=== PATIENT | male | born 1970 | race Caucasian/White ===

== ENCOUNTER → 2016-06-08 | Outpatient (CLI) | payer OTHER ==
--- NOTE | 2016-06-08 10:36 | REP ---
Chest x-ray: Two views. History: Dyspnea, family history of ischemic heart disease. Comparison chest x-ray January 18, 2012. Findings: The lungs are symmetrically aerated and clear. Pleural angles are sharp. Heart size is normal. Pulmonary vasculature is not increased. There is old deformity of the left upper lateral rib cage involving the left 4th rib unchanged from the prior study. There are mild degenerative changes in the thoracic spine. Impression: No active disease. Signed by Morgan Veliz MD 06/08/2016 10:45 A
--- NOTE | 2016-06-08 11:56 | ECGEPIP ---
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
== END ==
LOC: M EKG 09:51
PROVIDERS: ATTEND Nurse Practitioner Adult Health
DX: R06.00 Dyspnea, unspecified (principal); Z82.49 Family history of ischemic heart disease and other diseases of the circulatory system; Z01.818 Encounter for other preprocedural examination

== ENCOUNTER → 2017-11-09 | Outpatient (CLI) | payer OTHER ==
[2017-11-09 13:31] LABS: HEMATOCRIT 46.2 % (42.0-52.0); HEMOGLOBIN 16.1 g/dl (13.5-17.5); MEAN CORPUSCULAR HEMOGLOBIN 28.4 pg (27.0-33.0); MEAN CORPUSCULAR HGB CONC 34.8 g/dl (32.0-36.5); MEAN CORPUSCULAR VOLUME 81.5 fl (80.0-96.0); PLATELET COUNT, AUTOMATED 244 10^3/uL (150-450); RED BLOOD COUNT 5.67 10^6/uL (4.30-6.10); RED CELL DISTRIBUTION WIDTH 12.1 % (11.5-14.5); WHITE BLOOD COUNT 5.7 10^3/uL (4.0-10.0)
[2017-11-09 13:40] LABS: ALBUMIN 4.4 GM/DL (3.2-5.2); ALBUMIN/GLOBULIN RATIO 1.42 (1.00-1.93); ALKALINE PHOSPHATASE 57 U/L (45-117); ALT/SGPT 36 U/L (12-78); ANION GAP 8 MEQ/L (8-16); AST/SGOT 15 U/L (7-37); BILIRUBIN,TOTAL 0.9 MG/DL (0.2-1.0); BLOOD UREA NITROGEN 17 MG/DL (7-18); CALCIUM LEVEL 8.9 MG/DL (8.5-10.1); CARBON DIOXIDE LEVEL 24 MEQ/L (21-32); CHLORIDE LEVEL 110 MEQ/L (98-107); CHOLESTEROL LEVEL 174 MG/DL (<200); CREATININE FOR GFR 0.99 MG/DL (0.70-1.30); GLOMERULAR FILTRATION RATE > 60.0 (>60); GLUCOSE, FASTING 96 MG/DL (70-100); HDL CHOLESTEROL 40 MG/DL (>40); LDL CHOLESTEROL 105.2 MG/DL (<100); NON-HDL-C 134 MG/DL; SODIUM LEVEL 142 MEQ/L (136-145); THYROID STIMULATING HORMONE 0.878 uIU/ML (0.358-3.740); TOTAL PROTEIN 7.5 GM/DL (6.4-8.2); TRIGLYCERIDES LEVEL 144 MG/DL (<150)
== END ==
LOC: M WUC 08:40
DX: I10 Essential (primary) hypertension (principal); E78.5 Hyperlipidemia, unspecified
CPT/HCPCS: 84443

== ENCOUNTER → 2019-12-11 | Outpatient (CLI) | payer OTHER ==
--- NOTE | 2019-12-29 14:30 | REP ---
CHEST X-RAY: TECHNIQUE: PA and lateral COMPARISON: 06/08/16 HISTORY: Dyssomnia. FINDINGS: Mediastinum and cardiac silhouette are normal. Lung todd are clear. No consolidation, effusion or pneumothorax. Skeletal structures are intact. Old healed left rib fracture suggested. IMPRESSION: No acute cardiopulmonary process or focal consolidation. MTDD
== END ==
LOC: M WUC 13:52
PROVIDERS: ATTEND Physician Assistant Medical
DX: G47.9 Sleep disorder, unspecified (principal)

== ENCOUNTER → 2020-02-12 | Outpatient (CLI) | payer OTHER ==
--- NOTE | 2020-02-16 14:23 | SLEEPHOME ---
DATE: 02/12/2020 ORDERED BY: BECCA Nugent Nocturnal polysomnography was performed for evaluation of sleep physiology in this patient with a history of excessive somnolence, snoring, and nonrestorative sleep. Eight hours and 17 minutes of data were reviewed. There were 391.5 minutes of sleep identified. Sleep latency was normal at 13 minutes. REM latency was normal at 86 minutes. Sleep architecture was fairly good. There was some fragmentation. Five REM cycles were appreciated. Overall sleep efficiency was 80%. The electrocardiogram showed a sinus rhythm with an average heart rate of 60 beats per minute. EEG showed normal waveforms for wake and sleep. There were 44 respiratory events identified of 10 seconds in duration or greater for apnea- hypopnea index of 6.7. The events were primarily obstructive and not stage- associated, but they were associated with a supine posture. Arousals from respiratory events were seen 5.4 times/hour and oxygen desaturations were rare below 90%. There was some limb activity, but limb movement arousals were few. Snoring was noted over the course of the study. 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 RECOMMENDATION: Sleep position retraining for avoidance of the supine posture is recommended. Should the patients symptoms persist, consideration could be given to referral back to the sleep disorder order center for pressure therapy. BEL
== END ==
LOC: M SLEEP 20:00
PROVIDERS: ATTEND Nurse Practitioner Family
DX: G47.33 Obstructive sleep apnea (adult) (pediatric) (principal)

== ENCOUNTER → 2021-08-19 | Outpatient (CLI) | payer OTHER ==
[~2021-08-19] MED LIST: CLAR10CA3 PO; ECOT81TA5 PO; LISI30TA4; ROSU10TA6; VITA1CAP25
== END ==
LOC: M LABSMTC 11:24
PROVIDERS: ATTEND Anesthesiology
DX: Z01.812 Encounter for preprocedural laboratory examination (principal); Z20.822 Contact with and (suspected) exposure to COVID-19

== ENCOUNTER 2021-08-24 07:44 | Day surgery (SDC) | payer OTHER ==
[~2021-08-24] VITALS: Ht 185.4 cm; Wt 99.5 kg
[~2021-08-24 07:44] MED LIST changes: +LIDOCAINE 2% 100MG/5ML SDV (FOR ANES.) As Ordered ONE; +NS 1,000 ML IV ONE; +propofoL 200 MG/20 ML VIAL As Ordered ONE
[2021-08-24] MEDS ORDERED: ePHEDrine SULFATE 25 MG/5 ML(5MG/ML) SYRINGE As Ordered ONE (09:30)
[2021-08-24 10:05] VITALS: BP 123/78
== END 2021-08-24 10:12 | disposition home or self-care (01) ==
LOC: M OPP 07:44
PROVIDERS: ATTEND Internal Medicine Gastroenterology
DX: Z12.11 Encounter for screening for malignant neoplasm of colon (principal); K63.5 Polyp of colon; Z79.02 Long term (current) use of antithrombotics/antiplatelets; Z79.82 Long term (current) use of aspirin; Z79.899 Other long term (current) drug therapy